=== PATIENT | female | born 1940 | race Caucasian/White ===

== ENCOUNTER → 2017-02-04 | Outpatient (CLI) | payer MEDICARE ==
[~2017-02-04] MED LIST: ACETAMINOPHEN-H1 TA2 PO; ASPIRIN81 M1 PO; COLACE100 MG PO; COUMADIN0.5 MG PO; COUMADIN2 M1 PO; COUMADIN4 M2 PO; DILAUDID1 MG/1 ML IV; HCTZ-METOPROLOL1 TA1 PO; LISINOPRIL AND1 TA2 PO; MULTIVITAMIN1 TAB PO; OXYCODONE HCL10 M1 PO; PANTOPRAZOLE SO40 MG PO; POLYETHYLE17 GM/Dose PO; PROMETHAZINE IV; SENOKOT1 TAB PO; SEROQUEL50 MG PO; STRESS B1 EACH PO; VICODIN ES 7501 TAB PO; VITAMIN D400 UNI1 PO; VITAMIN E400 UNI1 PO; VITAMIN E400 UNI2 PO; XANAX0.25 MG PO
[2017-02-04 15:30] LABS: INTERNATIONAL NORM RATIO 1.6 (2.0-3.5)
== END | disposition home or self-care (01) ==
LOC: LAB 14:15
PROVIDERS: Internal Medicine
DX: Z79.01 Long term (current) use of anticoagulants (principal)

== ENCOUNTER → 2017-06-28 | Outpatient (CLI) | payer MEDICARE ==
[~2017-06-28] MED LIST changes: +CALTRATE 600+D1 EACH PO; +ELIQUIS5 M1 PO; +LASIX20 MG PO; +METOPROLOL25 MG PO; +MS CONTIN15 MG PO; +POTASSIUM CHLO20 ME3 PO; +ZESTRIL10 MG PO
[2017-06-28 08:27] LABS: BASO # 0.1 10*3/uL (0.0-0.1); BASO % 1.2 % (0.0-1.0); EOS # 0.2 10*3/uL (0.0-0.4); HEMATOCRIT 39.4 % (37.0-47.0); HEMOGLOBIN 12.4 g/dl (12.0-16.0); LYMPH # 2.7 10*3/uL (1.3-4.4); LYMPH % 53.6 % (27.0-41.0); MEAN CELL VOLUME 87.6 fl (81.0-99.0); MEAN CORPUSCULAR HGB 27.6 pg (27.0-31.0); MEAN CORPUSCULAR HGB CONC 31.5 g/dl (33.0-37.0); MEAN PLATELET VOLUME 10.1 fl (9.6-12.3); MONO # 0.3 10*3/uL (0.1-1.0); MONO % 6.3 % (3.0-9.0); NEUT # 1.8 10*3/uL (2.3-7.9); NEUT % 34.7 % (47.0-73.0); PLATELET COUNT AUTOMATED 215 10*3/uL (130-400); RED CELL DISTRI WIDTH 13.3 % (0-14.5); WHITE BLOOD COUNT 5.1 10*3/uL (4.8-10.8)
[2017-06-28 08:52] LABS: ALBUMIN 3.6 gm/dl (3.1-4.5); ALKALINE PHOSPHATASE 82 U/L (45-117); BUN 12 mg/dl (7-24); CHLORIDE 109 mmol/L (98-107); CHOLESTEROL 258 mg/dL (<200); CREATININE 0.87 mg/dL (0.55-1.02); HDL CHOLESTEROL 57 mg/dl (40-60); LDL CHOLESTEROL 164 mg/dL (9-159); POTASSIUM 3.8 mmol/L (3.5-5.1); SGOT/AST 19 IU/L (3-35); SGPT/ALT 20 U/L (12-78); SODIUM 145 mmol/L (136-145); TRIGLYCERIDES 187 mg/dl (<150); VLDL CHOLESTEROL 37 mg/dL (6-40)
== END | disposition home or self-care (01) ==
LOC: LAB 08:03
PROVIDERS: Nurse Practitioner Family
DX: I10 Essential (primary) hypertension (principal); E78.00 Pure hypercholesterolemia, unspecified

== ENCOUNTER → 2017-12-14 | Outpatient (CLI) | payer MEDICARE ==
[2017-12-14 14:20] LABS: BASO # 0.1 10*3/uL (0.0-0.1); BASO % 1.1 % (0.0-1.0); EOS # 0.1 10*3/uL (0.0-0.4); EOS % 1.9 % (1.0-4.0); HEMOGLOBIN 12.2 g/dl (12.0-16.0); LYMPH # 2.2 10*3/uL (1.3-4.4); LYMPH % 38.6 % (27.0-41.0); MEAN CELL VOLUME 85.5 fl (81.0-99.0); MEAN CORPUSCULAR HGB 28.2 pg (27.0-31.0); MEAN PLATELET VOLUME 10.5 fl (9.6-12.3); MONO # 0.4 10*3/uL (0.1-1.0); NEUT # 2.9 10*3/uL (2.3-7.9); NEUT % 51.2 % (47.0-73.0); PLATELET COUNT AUTOMATED 228 10*3/uL (130-400); RED BLOOD COUNT 4.33 10*6/uL (4.10-5.10); WHITE BLOOD COUNT 5.7 10*3/uL (4.8-10.8)
[2017-12-14 14:28] LABS: BILIRUBIN NEGATIVE (NEGATIVE); BLOOD NEGATIVE (NEGATIVE); CLARITY SL CLOUDY (CLEAR); COLOR YELLOW (YELLOW); GLUCOSE NEGATIVE (NEGATIVE); KETONE NEGATIVE (NEGATIVE); LEUKO ESTERASE 1+ (NEGATIVE); NITRITE NEGATIVE (NEGATIVE); SPECIFIC GRAVITY <= 1.005 (1.005-1.030); UROBILINOGEN 0.2 E.U./dl (0.2-1.0)
[2017-12-14 14:29] LABS: ACT PARTIAL THROMBO TIME 31.9 SECONDS (20.8-31.5)
[2017-12-14 14:39] LABS: BUN 11 mg/dl (7-24); CHLORIDE 102 mmol/L (98-107); CREATININE 0.85 mg/dL (0.55-1.02); POTASSIUM 4.4 mmol/L (3.5-5.1); SODIUM 137 mmol/L (136-145)
[2017-12-14 14:44] LABS: BACTERIA TRACE; RBC 0-2 rbc/hpf (0-2)
== END | disposition home or self-care (01) ==
LOC: LAB 13:28
PROVIDERS: Specialist
DX: Z01.818 Encounter for other preprocedural examination (principal); I25.10 Atherosclerotic heart disease of native coronary artery without angina pectoris; I10 Essential (primary) hypertension; Z79.01 Long term (current) use of anticoagulants; Z79.899 Other long term (current) drug therapy

== ENCOUNTER → 2018-01-08 | Outpatient (CLI) | payer MEDICARE | END | disposition home or self-care (01) | LOC: LAB 12:12 | DX: Z01.818 Encounter for other preprocedural examination (principal); M25.561 Pain in right knee; G89.29 Other chronic pain ==

== ENCOUNTER → 2018-04-19 | Outpatient (CLI) | payer MEDICARE ==
[2018-04-19 13:49] LABS: CREATININE 1.09 mg/dL (0.55-1.02); POTASSIUM 4.7 mmol/L (3.5-5.1)
== END | disposition home or self-care (01) ==
LOC: LAB 12:43
PROVIDERS: Nurse Practitioner Family
DX: E87.5 Hyperkalemia (principal); R79.89 Other specified abnormal findings of blood chemistry

== ENCOUNTER → 2018-05-03 | Outpatient (CLI) | payer MEDICARE ==
[2018-05-03 11:14] LABS: BASO % 0.8 % (0.0-1.0); EOS # 0.1 10*3/uL (0.0-0.4); HEMOGLOBIN 9.6 g/dl (12.0-16.0); LYMPH # 1.3 10*3/uL (1.3-4.4); LYMPH % 26.9 % (27.0-41.0); MEAN CELL VOLUME 83.1 fl (81.0-99.0); MEAN CORPUSCULAR HGB 25.7 pg (27.0-31.0); MEAN PLATELET VOLUME 9.7 fl (9.6-12.3); MONO # 0.3 10*3/uL (0.1-1.0); MONO % 5.9 % (3.0-9.0); NEUT # 3.1 10*3/uL (2.3-7.9); PLATELET COUNT AUTOMATED 236 10*3/uL (130-400); RED BLOOD COUNT 3.73 10*6/uL (4.10-5.10); RED CELL DISTRI WIDTH 16.1 % (0-14.5); WHITE BLOOD COUNT 4.9 10*3/uL (4.8-10.8)
[2018-05-03 11:40] LABS: ALBUMIN 3.6 gm/dl (3.1-4.5); CREATININE 1.21 mg/dL (0.55-1.02); POTASSIUM 4.1 mmol/L (3.5-5.1); TOTAL PROTEIN 8.2 gm/dL (6.4-8.2)
== END | disposition home or self-care (01) ==
LOC: LAB 03:09
PROVIDERS: Internal Medicine Infectious Disease
DX: Z01.818 Encounter for other preprocedural examination (principal); M25.561 Pain in right knee; G89.29 Other chronic pain; T84.50XD Infection and inflammatory reaction due to unspecified internal joint prosthesis, subsequent encounter

== ENCOUNTER → 2018-06-13 | Outpatient (CLI) | payer MEDICARE ==
[2018-06-13 11:25] LABS: BASO % 0.9 % (0.0-1.0); EOS # 0.1 10*3/uL (0.0-0.4); EOS % 2.5 % (1.0-4.0); HEMATOCRIT 34.5 % (37.0-47.0); HEMOGLOBIN 10.5 g/dl (12.0-16.0); LYMPH # 1.6 10*3/uL (1.3-4.4); LYMPH % 35.6 % (27.0-41.0); MEAN CELL VOLUME 87.3 fl (81.0-99.0); MEAN CORPUSCULAR HGB 26.6 pg (27.0-31.0); MEAN CORPUSCULAR HGB CONC 30.4 g/dl (33.0-37.0); MEAN PLATELET VOLUME 9.7 fl (9.6-12.3); MONO # 0.3 10*3/uL (0.1-1.0); MONO % 6.3 % (3.0-9.0); NEUT # 2.4 10*3/uL (2.3-7.9); NEUT % 54.5 % (47.0-73.0); PLATELET COUNT AUTOMATED 216 10*3/uL (130-400); RED BLOOD COUNT 3.95 10*6/uL (4.10-5.10); RED CELL DISTRI WIDTH 14.6 % (0-14.5); WHITE BLOOD COUNT 4.5 10*3/uL (4.8-10.8)
[2018-06-13 12:01] LABS: ALBUMIN 3.6 gm/dl (3.1-4.5); CREATININE 1.22 mg/dL (0.55-1.02); POTASSIUM 4.1 mmol/L (3.5-5.1)
== END | disposition home or self-care (01) ==
LOC: LAB 10:43
PROVIDERS: Internal Medicine Infectious Disease; Nurse Practitioner Family
DX: I10 Essential (primary) hypertension (principal); T84.50XD Infection and inflammatory reaction due to unspecified internal joint prosthesis, subsequent encounter

== ENCOUNTER → 2018-07-21 | Outpatient (CLI) | payer MEDICARE ==
[2018-07-21 13:30] LABS: BASO # 0.1 10*3/uL (0.0-0.1); EOS # 0.1 10*3/uL (0.0-0.4); EOS % 2.8 % (1.0-4.0); HEMATOCRIT 33.1 % (37.0-47.0); HEMOGLOBIN 10.3 g/dl (12.0-16.0); LYMPH # 1.9 10*3/uL (1.3-4.4); LYMPH % 38.9 % (27.0-41.0); MEAN CELL VOLUME 87.6 fl (81.0-99.0); MEAN CORPUSCULAR HGB 27.2 pg (27.0-31.0); MEAN CORPUSCULAR HGB CONC 31.1 g/dl (33.0-37.0); MEAN PLATELET VOLUME 10.1 fl (9.6-12.3); MONO # 0.4 10*3/uL (0.1-1.0); MONO % 7.9 % (3.0-9.0); NEUT # 2.4 10*3/uL (2.3-7.9); NEUT % 49.2 % (47.0-73.0); PLATELET COUNT AUTOMATED 221 10*3/uL (130-400); RED BLOOD COUNT 3.78 10*6/uL (4.10-5.10); RED CELL DISTRI WIDTH 13.2 % (0-14.5); WHITE BLOOD COUNT 4.9 10*3/uL (4.8-10.8)
[2018-07-21 14:09] LABS: ALBUMIN 3.8 gm/dl (3.1-4.5); CREATININE 1.17 mg/dL (0.55-1.02); POTASSIUM 4.8 mmol/L (3.5-5.1); TOTAL PROTEIN 8.3 gm/dL (6.4-8.2)
== END | disposition home or self-care (01) ==
LOC: LAB 12:51
PROVIDERS: Internal Medicine Infectious Disease
DX: I10 Essential (primary) hypertension (principal); T84.50XD Infection and inflammatory reaction due to unspecified internal joint prosthesis, subsequent encounter

== ENCOUNTER → 2019-03-16 | Outpatient (CLI) | payer MEDICARE | END | disposition home or self-care (01) | LOC: RESCLI 02:01 | DX: K21.9 Gastro-esophageal reflux disease without esophagitis (principal); R60.9 Edema, unspecified; I48.91 Unspecified atrial fibrillation; I10 Essential (primary) hypertension; M15.9 Polyosteoarthritis, unspecified; G47.00 Insomnia, unspecified; E78.5 Hyperlipidemia, unspecified; E55.9 Vitamin D deficiency, unspecified; E66.9 Obesity, unspecified; Z76.89 Persons encountering health services in other specified circumstances; Z68.34 Body mass index [BMI] 34.0-34.9, adult; Z79.899 Other long term (current) drug therapy ==

== ENCOUNTER → 2019-06-30 | Outpatient (CLI) | payer MEDICARE | END | disposition home or self-care (01) | LOC: RESCLI 01:16 | DX: Z13.820 Encounter for screening for osteoporosis (principal); E78.5 Hyperlipidemia, unspecified; E55.9 Vitamin D deficiency, unspecified; I10 Essential (primary) hypertension; G47.00 Insomnia, unspecified; E66.9 Obesity, unspecified; R60.9 Edema, unspecified; I48.91 Unspecified atrial fibrillation; Z79.899 Other long term (current) drug therapy ==

== ENCOUNTER → 2019-08-01 | Outpatient (CLI) | payer MEDICARE | END | disposition home or self-care (01) | LOC: RAD 07-21 11:00 | DX: Z78.0 Asymptomatic menopausal state (principal) ==

== ENCOUNTER → 2019-08-08 | Outpatient (CLI) | payer MEDICARE ==
[2019-08-08 10:59] LABS: ALBUMIN 3.7 gm/dl (3.1-4.5); CREATININE 1.11 mg/dL (0.55-1.02); POTASSIUM 3.7 mmol/L (3.5-5.1); TOTAL PROTEIN 7.9 gm/dL (6.4-8.2)
[2019-08-08 13:11] LABS: VITAMIN D, 25-HYDROXY 17.9 ng/mL (30-100)
[2019-08-09 08:10] LABS: LDL CHOLESTEROL (DIRECT) 112 mg/dL (0-99)
[2019-08-09 13:08] LABS: LIPOPROTEIN A 120188 155.8 nmol/L (<75.0)
[2019-08-10 17:09] LABS: APOLIPOPROTEIN B 167015 89 mg/dL (<90)
== END | disposition home or self-care (01) ==
LOC: LAB 01:08
PROVIDERS: Internal Medicine Endocrinology, Diabetes & Metabolism
DX: E55.9 Vitamin D deficiency, unspecified (principal); E53.8 Deficiency of other specified B group vitamins; E78.01 Familial hypercholesterolemia; R79.89 Other specified abnormal findings of blood chemistry

== ENCOUNTER → 2019-10-13 | Outpatient (CLI) | payer MEDICARE | END | disposition home or self-care (01) | LOC: RESCLI 09:49 | DX: I10 Essential (primary) hypertension (principal); I48.91 Unspecified atrial fibrillation; E78.01 Familial hypercholesterolemia; M81.0 Age-related osteoporosis without current pathological fracture; G47.00 Insomnia, unspecified; K59.00 Constipation, unspecified; K21.9 Gastro-esophageal reflux disease without esophagitis; E66.09 Other obesity due to excess calories; R60.9 Edema, unspecified; Z68.33 Body mass index [BMI] 33.0-33.9, adult; Z79.899 Other long term (current) drug therapy; Z90.710 Acquired absence of both cervix and uterus; Z90.12 Acquired absence of left breast and nipple ==

== ENCOUNTER → 2019-11-22 | Outpatient (CLI) | payer MEDICARE ==
[2019-11-22 11:16] LABS: ALBUMIN 3.8 gm/dl (3.1-4.5); CREATININE 1.12 mg/dL (0.55-1.02); POTASSIUM 3.7 mmol/L (3.5-5.1); TOTAL PROTEIN 8.2 gm/dL (6.4-8.2)
[2019-11-22 11:19] LABS: PHOSPHOROUS 3.2 mg/dL (2.5-4.9)
[2019-11-22 11:35] LABS: PTH INTACT 82.6 pg/mL (18.5-88.0); VITAMIN D, 25-HYDROXY 30.8 ng/mL (30-100)
[2019-11-23 05:05] LABS: TOTAL PROTEIN, SERUM 7.4 g/dL (6.0-8.5)
[2019-11-23 08:07] LABS: IMMUNOGLOBULIN G, QNT 1455 mg/dL (700-1600); IMMUNOGLOBULIN M, QNT 65 mg/dL (26-217); LDL CHOLESTEROL (DIRECT) 130 mg/dL (0-99)
[2019-11-23 10:06] LABS: CREATININE,URINE 41.3 mg/dL (Not Estab.)
[2019-11-23 10:19] LABS: URINE VOLUME 1700 mL
[2019-11-23 16:06] LABS: A/G RATIO 0.9 (0.7-1.7); ALBUMIN 3.6 g/dL (2.9-4.4); ALPHA-1-GLOBULIN 0.2 g/dL (0.0-0.4); ALPHA-2-GLOBULIN 0.8 g/dL (0.4-1.0); BETA GLOBULIN 1.3 g/dL (0.7-1.3); GAMMA GLOBULIN 1.4 g/dL (0.4-1.8); GLOBULIN, TOTAL 3.8 g/dL (2.2-3.9); M-SPIKE Not Observed g/dL (Not Observed)
== END | disposition home or self-care (01) ==
LOC: LAB 01:10
PROVIDERS: Internal Medicine Endocrinology, Diabetes & Metabolism
DX: E78.01 Familial hypercholesterolemia (principal); E55.9 Vitamin D deficiency, unspecified; M81.0 Age-related osteoporosis without current pathological fracture

== ENCOUNTER → 2020-05-07 | Outpatient (CLI) | payer MEDICARE ==
[2020-05-07 15:26] LABS: BASO # 0.1 10*3/uL (0.0-0.1); BASO % 0.9 % (0.0-1.0); EOS # 0.2 10*3/uL (0.0-0.4); EOS % 2.3 % (1.0-4.0); HEMATOCRIT 36.5 % (37.0-47.0); LYMPH % 30.8 % (27.0-41.0); MEAN CELL VOLUME 82.6 fl (81.0-99.0); MEAN CORPUSCULAR HGB CONC 31.5 g/dl (33.0-37.0); MEAN PLATELET VOLUME 10.6 fl (9.6-12.3); MONO # 0.5 10*3/uL (0.1-1.0); MONO % 7.9 % (3.0-9.0); NEUT # 3.8 10*3/uL (2.3-7.9); NEUT % 57.9 % (47.0-73.0); PLATELET COUNT AUTOMATED 218 10*3/uL (130-400); RED BLOOD COUNT 4.42 10*6/uL (4.10-5.10); RED CELL DISTRI WIDTH 13.2 % (0-14.5); WHITE BLOOD COUNT 6.6 10*3/uL (4.8-10.8)
== END | disposition home or self-care (01) ==
LOC: RESCLI 10:45
PROVIDERS: Student in an Organized Health Care Education/Training Program
DX: S46.911A Strain of unspecified muscle, fascia and tendon at shoulder and upper arm level, right arm, initial encounter (principal); M19.011 Primary osteoarthritis, right shoulder; M77.9 Enthesopathy, unspecified; E78.01 Familial hypercholesterolemia; M81.0 Age-related osteoporosis without current pathological fracture; I12.9 Hypertensive chronic kidney disease with stage 1 through stage 4 chronic kidney disease, or unspecified chronic kidney disease; N18.3 Chronic kidney disease, stage 3 (moderate); R60.9 Edema, unspecified; I25.10 Atherosclerotic heart disease of native coronary artery without angina pectoris; I48.91 Unspecified atrial fibrillation; G47.00 Insomnia, unspecified; K21.9 Gastro-esophageal reflux disease without esophagitis; I25.2 Old myocardial infarction; Z95.828 Presence of other vascular implants and grafts; Z90.710 Acquired absence of both cervix and uterus; Z98.890 Other specified postprocedural states; Z79.899 Other long term (current) drug therapy; X58.XXXA Exposure to other specified factors, initial encounter; Y93.89 Activity, other specified; Y92.89 Other specified places as the place of occurrence of the external cause; Y99.8 Other external cause status

== ENCOUNTER → 2020-10-30 | Outpatient (CLI) | payer MEDICARE | END | disposition home or self-care (01) | LOC: RESCLI 00:31 | PROVIDERS: ATTEND Internal Medicine Nephrology | DX: M81.0 Age-related osteoporosis without current pathological fracture (principal); I48.91 Unspecified atrial fibrillation; E78.01 Familial hypercholesterolemia; R60.9 Edema, unspecified; G47.00 Insomnia, unspecified; I10 Essential (primary) hypertension; K21.9 Gastro-esophageal reflux disease without esophagitis; E55.9 Vitamin D deficiency, unspecified; Z79.899 Other long term (current) drug therapy; Z88.8 Allergy status to other drugs, medicaments and biological substances ==

== ENCOUNTER → 2020-12-27 | Outpatient (CLI) | payer MEDICARE ==
[2020-12-27 11:03] LABS: BASO % 0.8 % (0.0-1.0); EOS # 0.2 10*3/uL (0.0-0.4); EOS % 2.8 % (1.0-4.0); HEMATOCRIT 34.6 % (37.0-47.0); LYMPH # 1.7 10*3/uL (1.3-4.4); LYMPH % 31.5 % (27.0-41.0); MEAN CORPUSCULAR HGB 25.7 pg (27.0-31.0); MEAN CORPUSCULAR HGB CONC 30.6 g/dl (33.0-37.0); MONO # 0.4 10*3/uL (0.1-1.0); NEUT # 3.1 10*3/uL (2.3-7.9); NEUT % 57.5 % (47.0-73.0); PLATELET COUNT AUTOMATED 220 10*3/uL (130-400); RED BLOOD COUNT 4.12 10*6/uL (4.10-5.10); RED CELL DISTRI WIDTH 13.6 % (0-14.5); WHITE BLOOD COUNT 5.3 10*3/uL (4.8-10.8)
[2020-12-27 11:39] LABS: ALBUMIN 3.6 gm/dl (3.1-4.5); CREATININE 1.18 mg/dL (0.55-1.02); TOTAL PROTEIN 8.1 gm/dL (6.4-8.2)
== END | disposition home or self-care (01) ==
LOC: LAB 00:59
PROVIDERS: ATTEND Student in an Organized Health Care Education/Training Program
DX: I10 Essential (primary) hypertension (principal); E55.9 Vitamin D deficiency, unspecified; E78.01 Familial hypercholesterolemia

== ENCOUNTER → 2021-01-08 | Outpatient (CLI) | payer MEDICARE | END | disposition home or self-care (01) | LOC: RESCLI 02:10 | PROVIDERS: ATTEND Internal Medicine Nephrology | DX: S81.801A Unspecified open wound, right lower leg, initial encounter (principal); I48.91 Unspecified atrial fibrillation; M81.0 Age-related osteoporosis without current pathological fracture; E78.01 Familial hypercholesterolemia; G47.00 Insomnia, unspecified; R60.9 Edema, unspecified; I12.9 Hypertensive chronic kidney disease with stage 1 through stage 4 chronic kidney disease, or unspecified chronic kidney disease; N18.31 Chronic kidney disease, stage 3a; K21.9 Gastro-esophageal reflux disease without esophagitis; X58.XXXA Exposure to other specified factors, initial encounter; Y93.89 Activity, other specified; Y92.89 Other specified places as the place of occurrence of the external cause; Y99.8 Other external cause status ==

== ENCOUNTER → 2021-01-31 | Outpatient (CLI) | payer MEDICARE | LOC: WOUNDCARE 00:55 | PROVIDERS: ATTEND Nurse Practitioner | DX: L97.822 Non-pressure chronic ulcer of other part of left lower leg with fat layer exposed (principal); S81.811A Laceration without foreign body, right lower leg, initial encounter; I13.10 Hypertensive heart and chronic kidney disease without heart failure, with stage 1 through stage 4 chronic kidney disease, or unspecified chronic kidney disease; N18.30 Chronic kidney disease, stage 3 unspecified; E78.5 Hyperlipidemia, unspecified; I48.91 Unspecified atrial fibrillation; I25.2 Old myocardial infarction; K21.9 Gastro-esophageal reflux disease without esophagitis; G47.00 Insomnia, unspecified; M19.90 Unspecified osteoarthritis, unspecified site; M85.80 Other specified disorders of bone density and structure, unspecified site; Z86.711 Personal history of pulmonary embolism; Z90.49 Acquired absence of other specified parts of digestive tract; Z95.818 Presence of other cardiac implants and grafts; Z79.899 Other long term (current) drug therapy; Z79.01 Long term (current) use of anticoagulants; X58.XXXA Exposure to other specified factors, initial encounter; Y99.8 Other external cause status; Y93.89 Activity, other specified; Y92.89 Other specified places as the place of occurrence of the external cause ==

== ENCOUNTER → 2021-05-26 | Outpatient (CLI) | payer MEDICARE | END | disposition home or self-care (01) | LOC: RESCLI 01:03 | PROVIDERS: ATTEND Internal Medicine Nephrology | DX: M81.0 Age-related osteoporosis without current pathological fracture (principal); I48.91 Unspecified atrial fibrillation; E78.01 Familial hypercholesterolemia; G47.00 Insomnia, unspecified; R60.9 Edema, unspecified; K21.9 Gastro-esophageal reflux disease without esophagitis; E78.5 Hyperlipidemia, unspecified; I13.10 Hypertensive heart and chronic kidney disease without heart failure, with stage 1 through stage 4 chronic kidney disease, or unspecified chronic kidney disease; F32.9 Major depressive disorder, single episode, unspecified; Z90.710 Acquired absence of both cervix and uterus; Z98.890 Other specified postprocedural states; Z95.818 Presence of other cardiac implants and grafts; Z86.711 Personal history of pulmonary embolism; Z79.899 Other long term (current) drug therapy ==

== ENCOUNTER → 2021-06-24 | Outpatient (CLI) | payer MEDICARE | END | disposition home or self-care (01) | LOC: CARD 00:01 | PROVIDERS: ATTEND Internal Medicine Cardiovascular Disease | DX: I08.1 Rheumatic disorders of both mitral and tricuspid valves (principal); I50.31 Acute diastolic (congestive) heart failure ==

== ENCOUNTER → 2022-03-02 | Outpatient (CLI) | payer MEDICARE | END | disposition home or self-care (01) | LOC: RESCLI 00:01 | PROVIDERS: ATTEND Internal Medicine Nephrology | DX: I48.91 Unspecified atrial fibrillation (principal); M81.0 Age-related osteoporosis without current pathological fracture; R60.9 Edema, unspecified; K21.9 Gastro-esophageal reflux disease without esophagitis; I12.9 Hypertensive chronic kidney disease with stage 1 through stage 4 chronic kidney disease, or unspecified chronic kidney disease; N18.30 Chronic kidney disease, stage 3 unspecified; G47.00 Insomnia, unspecified; E78.5 Hyperlipidemia, unspecified; R00.2 Palpitations; Z88.8 Allergy status to other drugs, medicaments and biological substances; Z79.899 Other long term (current) drug therapy; Z79.01 Long term (current) use of anticoagulants; Z90.710 Acquired absence of both cervix and uterus ==

== ENCOUNTER → 2022-03-09 | Outpatient (CLI) | payer MEDICARE | END | disposition home or self-care (01) | LOC: CARD 10:23 | PROVIDERS: ATTEND Internal Medicine Nephrology | DX: I49.3 Ventricular premature depolarization (principal); I48.91 Unspecified atrial fibrillation; R00.2 Palpitations ==

== ENCOUNTER → 2022-03-17 | Outpatient (CLI) | payer MEDICARE ==
[2022-03-17 12:10] LABS: BASO # 0.1 10*3/uL (0.0-0.1); BASO % 1.1 % (0.0-1.0); EOS # 0.2 10*3/uL (0.0-0.4); HEMATOCRIT 40.3 % (37.0-47.0); LYMPH # 1.4 10*3/uL (1.3-4.4); LYMPH % 26.1 % (27.0-41.0); MEAN CELL VOLUME 85.4 fl (81.0-99.0); MEAN CORPUSCULAR HGB 27.1 pg (27.0-31.0); MEAN CORPUSCULAR HGB CONC 31.8 g/dl (33.0-37.0); MEAN PLATELET VOLUME 10.6 fl (9.6-12.3); MONO # 0.4 10*3/uL (0.1-1.0); MONO % 8.1 % (3.0-9.0); NEUT # 3.3 10*3/uL (2.3-7.9); NEUT % 61.5 % (47.0-73.0); PLATELET COUNT AUTOMATED 198 10*3/uL (130-400); RED BLOOD COUNT 4.72 10*6/uL (4.10-5.10); RED CELL DISTRI WIDTH 13.3 % (0-14.5); WHITE BLOOD COUNT 5.3 10*3/uL (4.8-10.8)
[2022-03-17 12:25] LABS: CREATININE 1.15 mg/dL (0.55-1.02); POTASSIUM 4.2 mmol/L (3.5-5.1); TOTAL PROTEIN 7.8 gm/dL (6.4-8.2)
== END | disposition home or self-care (01) ==
LOC: LAB 01:45
PROVIDERS: Internal Medicine; ATTEND Internal Medicine Nephrology
DX: E78.5 Hyperlipidemia, unspecified (principal); I10 Essential (primary) hypertension; R00.2 Palpitations

== ENCOUNTER → 2022-06-11 | Outpatient (CLI) | payer MEDICARE | END | disposition home or self-care (01) | LOC: RAD 14:57 | PROVIDERS: ATTEND Internal Medicine | DX: M77.31 Calcaneal spur, right foot (principal) ==

== ENCOUNTER → 2022-10-13 | Outpatient (CLI) | payer MEDICARE | END | disposition home or self-care (01) | LOC: RESCLI 14:07 | PROVIDERS: ATTEND Internal Medicine | DX: Z23 Encounter for immunization (principal); I25.2 Old myocardial infarction; M81.0 Age-related osteoporosis without current pathological fracture; I12.9 Hypertensive chronic kidney disease with stage 1 through stage 4 chronic kidney disease, or unspecified chronic kidney disease; N18.30 Chronic kidney disease, stage 3 unspecified; E78.5 Hyperlipidemia, unspecified; I48.91 Unspecified atrial fibrillation; E78.01 Familial hypercholesterolemia; K21.9 Gastro-esophageal reflux disease without esophagitis; G47.00 Insomnia, unspecified; R60.9 Edema, unspecified; M25.511 Pain in right shoulder; Z79.899 Other long term (current) drug therapy ==

== ENCOUNTER → 2023-12-22 | Outpatient (CLI) | payer MEDICARE | END | disposition home or self-care (01) | LOC: RESCLI 10:08 | PROVIDERS: ATTEND Internal Medicine | DX: I48.91 Unspecified atrial fibrillation (principal); G47.00 Insomnia, unspecified; I10 Essential (primary) hypertension; E78.5 Hyperlipidemia, unspecified; E55.9 Vitamin D deficiency, unspecified; K21.9 Gastro-esophageal reflux disease without esophagitis; M81.0 Age-related osteoporosis without current pathological fracture; E78.01 Familial hypercholesterolemia; R60.9 Edema, unspecified; Z79.899 Other long term (current) drug therapy; Z82.49 Family history of ischemic heart disease and other diseases of the circulatory system; Z98.890 Other specified postprocedural states ==

== ENCOUNTER → 2024-08-28 | Outpatient (CLI) | payer MEDICARE ==
[~2024-08-28] MED LIST changes: +PRILOSEC20 M1 PO; +XARELTO15 M1 PO
== END | disposition home or self-care (01) ==
LOC: CARD 08-24 00:01
PROVIDERS: ATTEND Internal Medicine
DX: Z13.820 Encounter for screening for osteoporosis (principal); M25.571 Pain in right ankle and joints of right foot; M81.0 Age-related osteoporosis without current pathological fracture; M85.861 Other specified disorders of bone density and structure, right lower leg; M79.89 Other specified soft tissue disorders; R00.2 Palpitations; M85.871 Other specified disorders of bone density and structure, right ankle and foot

== ENCOUNTER → 2024-09-11 | Outpatient (CLI) | payer MEDICARE ==
[~2024-09-11] MED LIST changes: +Carafate1 GM PO
[2024-09-11 16:04] LABS: BASO # 0.1 10*3/uL (0.0-0.1); BASO % 0.9 % (0.0-1.0); EOS # 0.7 10*3/uL (0.0-0.4); EOS % 10.2 % (1.0-4.0); HEMATOCRIT 30.7 % (37.0-47.0); MEAN CELL VOLUME 86.5 fl (81.0-99.0); MEAN CORPUSCULAR HGB 26.2 pg (27.0-31.0); MEAN CORPUSCULAR HGB CONC 30.3 g/dl (33.0-37.0); MEAN PLATELET VOLUME 9.8 fl (9.6-12.3); MONO # 0.6 10*3/uL (0.1-1.0); MONO % 9.4 % (3.0-9.0); NEUT # 3.7 10*3/uL (2.3-7.9); NEUT % 56.6 % (47.0-73.0); PLATELET COUNT AUTOMATED 227 10*3/uL (130-400); RED BLOOD COUNT 3.55 10*6/uL (4.10-5.10); RED CELL DISTRI WIDTH 14.6 % (0-14.5); WHITE BLOOD COUNT 6.6 10*3/uL (4.8-10.8)
== END | disposition home or self-care (01) ==
LOC: LAB 15:40
PROVIDERS: ATTEND Internal Medicine
DX: D64.9 Anemia, unspecified (principal); K92.2 Gastrointestinal hemorrhage, unspecified

== ENCOUNTER → 2024-09-18 | Day surgery (SDC) | payer MEDICARE ==
[~2024-09-18] VITALS: Ht 167.6 cm; Wt 79.4 kg
[~2024-09-18] MED LIST changes: +Lactated Ringer's Solution 500 ML IV ONE; +Lidocaine Hydrochloride 2% 5 ML SDV IV ONE; +PROPOFOL 200 MG/20 ML VIAL IV ONE
[2024-09-18 11:17] VITALS: BP 127/67
[2024-09-18 12:58] VITALS: BP 152/72
[2024-09-18 13:15] VITALS: BP 143/73
[2024-09-18 13:30] VITALS: BP 163/78
== END | disposition home or self-care (01) ==
LOC: SDC 09-14 01:07
PROVIDERS: ATTEND Surgery
DX: D64.9 Anemia, unspecified (principal); K92.1 Melena; K57.30 Diverticulosis of large intestine without perforation or abscess without bleeding; K63.9 Disease of intestine, unspecified; K21.9 Gastro-esophageal reflux disease without esophagitis; I11.0 Hypertensive heart disease with heart failure; I50.32 Chronic diastolic (congestive) heart failure; I25.2 Old myocardial infarction; E78.00 Pure hypercholesterolemia, unspecified; I25.10 Atherosclerotic heart disease of native coronary artery without angina pectoris; I48.91 Unspecified atrial fibrillation; Z90.711 Acquired absence of uterus with remaining cervical stump; Z98.890 Other specified postprocedural states; Z79.899 Other long term (current) drug therapy

== ENCOUNTER 2024-11-08 15:33 | Emergency (ER) | payer MEDICARE ==
[~2024-11-08] VITALS: Ht 167.6 cm; Wt 78.5 kg
[~2024-11-08 15:33] MED LIST changes: -Lactated Ringer's Solution 500 ML IV ONE; -Lidocaine Hydrochloride 2% 5 ML SDV IV ONE; -PROPOFOL 200 MG/20 ML VIAL IV ONE
[2024-11-08 15:44] VITALS: BP 183/81
[2024-11-08] MEDS ORDERED: XARELTO20 M1 PO (15:45)
[2024-11-08] MEDS ORDERED: Acetaminophen/Oxycodone 5 MG/325 MG TABLET PO ONE (16:10)
[2024-11-08] MEDS ORDERED: TRIAMCINOLONE ACETONIDE 40 MG/ML VIAL IM ONE (16:10)
[2024-11-08] MEDS ORDERED: Ketorolac Tromethamine 30 MG/ML VIAL IM ONE (16:10)
[2024-11-08] MEDS ORDERED: PERCOCET 5-3251 EACH PO (16:28)
[2024-11-08 17:35] LABS: BILIRUBIN Negative (Negative); BLOOD Negative (Negative); CLARITY Clear (Clear); COLOR Yellow (Yellow); GLUCOSE Negative (Negative); KETONE Negative (Negative); LEUKO ESTERASE Trace (Negative); NITRITE Negative (Negative); SPECIFIC GRAVITY <= 1.005 (1.001-1.030); UROBILINOGEN 0.2 E.U./dl (0.0-1.0)
[2024-11-08 17:45] LABS: BACTERIA 1+; RBC 0-2 rbc/hpf (0-2)
== END 2024-11-08 18:21 | disposition home or self-care (01) ==
LOC: ED 15:33
PROVIDERS: Emergency Medicine
DX: M79.604 Pain in right leg (principal); M16.11 Unilateral primary osteoarthritis, right hip; M81.0 Age-related osteoporosis without current pathological fracture; I48.91 Unspecified atrial fibrillation; Z88.8 Allergy status to other drugs, medicaments and biological substances; Z79.899 Other long term (current) drug therapy; Z90.711 Acquired absence of uterus with remaining cervical stump

== ENCOUNTER 2024-11-16 06:40 | Emergency (ER) | payer MEDICARE ==
[~2024-11-16] VITALS: Ht 170.1 cm; Wt 78.5 kg
[~2024-11-16 06:40] MED LIST changes: +PERCOCET 5-3251 EACH PO; +XARELTO20 M1 PO
[2024-11-16 06:44] VITALS: BP 180/75
[2024-11-16] MEDS ORDERED: METHOCARBAMOL 500 MG TAB PO ONE (06:45)
[2024-11-16] MEDS ORDERED: methylPREDNISolone sod succ 125 MG VIAL IM ONE (06:45)
[2024-11-16] MEDS ORDERED: PREDNISONE20 M1 PO (06:49)
[2024-11-16] MEDS ORDERED: METHOCARBAMOL500 M1 PO (06:49)
== END 2024-11-16 07:12 | disposition home or self-care (01) ==
LOC: ED 06:40
DX: S39.012A Strain of muscle, fascia and tendon of lower back, initial encounter (principal); M54.42 Lumbago with sciatica, left side; Z88.8 Allergy status to other drugs, medicaments and biological substances; Z79.899 Other long term (current) drug therapy; Z90.710 Acquired absence of both cervix and uterus; Z95.5 Presence of coronary angioplasty implant and graft; X58.XXXA Exposure to other specified factors, initial encounter; Y93.89 Activity, other specified; Y92.89 Other specified places as the place of occurrence of the external cause; Y99.8 Other external cause status

== ENCOUNTER → 2025-01-23 | Outpatient (CLI) | payer MEDICARE ==
[~2025-01-23] MED LIST changes: +AMLODIPINE BESYL5 MG PO; +DIAZEPAM2 MG PO; +DURAGESIC T; +METHOCARBAMOL500 M1 PO; +OXYCODONE-ACET1 EACH PO; +PREDNISONE20 M1 PO; +VITAMIN D3125 MC1 PO
== END | disposition home or self-care (01) ==
LOC: CT 00:40
PROVIDERS: ATTEND Urology
DX: K59.00 Constipation, unspecified (principal); R33.9 Retention of urine, unspecified; Z90.710 Acquired absence of both cervix and uterus